=== PATIENT | female | born 2005 ===

== ENCOUNTER 2025-09-06 00:58 | Inpatient (IN) ==
[2025-09-06] MEDS: OXYTOCIN 10 UNITS/ML VIAL IM ONE (01:48)
[2025-09-06] MEDS ORDERED: LACTATED RINGER'S 1,000 ML IV PRN (02:10)
[2025-09-06] MEDS ORDERED: OXYTOCIN 30 UNITS/NSS 30 UNITS/500 ML BAG IV PRN ×2 (02:10→02:32)
--- NOTE | 2025-09-06 02:14 | History & Physical Report ---
Date of Service September 06, 2025 Assessment & Plan (1) Supervision of normal intrauterine in primigravida: Plan: Admit to L&D. Labs to be obtained post-delivery due to imminent nature of delivery on arrival. Admission and Anticipated Discharge Date Admission Date: September 06, 2025 History of Present Illness Chief Complaint: labor Primary Care Provider: MELISSA PCP 20yo @ 38 4/7, presented to L&D with spontaneous labor. complicated by limited care. GBS unknown. Allergies Allergy/AdvReac Type Severity Reaction Status Date / Time No Known Allergies Allergy Verified 09/06/25 01:51 Home Medications Medication Instructions Recorded Confirmed Type [id number] 1 mg 1 tab PO DAILY 09/06/25 09/06/25 History tablet Patient History Surgical History (Updated 09/06/25 @ 01:52 by Delma Bowles, IVON) No history of previous surgery Family History Mother Diabetes Father Myocardial infarction Social History (Updated 07/10/25 @ 14:11 by Jessica Reyes) Smoking Status: Never smoker Do You Dip or Chew Tobacco: No; marital status: Single marital status details: Marvin (22) [phone] Current Living Situation: Significant Other Current Living Situation Comment: lives with fob, no pets. current occupational status: employed current occupation: [id number]. Review of Systems All systems reviewed & are unremarkable except as noted in HPI & below Physical Exam Physical Exam: Upon my arrival to evaluate patient in room, station was 2+ and she was actively feeling urge to push. Constitutional: WD/WN, vitals as above Respiratory: normal respiratory effort, lungs clear to auscultation no respiratory distress Cardiovascular: Rate/Rhythm: regular rate and regular rhythm Gastrointestinal (Abdomen): Inspection/Auscultation: abdomen normal to inspection Percussion/Palpation: abdomen soft; abdomen nontender Gravid. No s/s chorio or abruption. Skin: no rashes, warm and dry Psychiatric: A+Ox3, euthymic affect Results & Data Vital Signs (Past 12 Hours) Vital Signs Temp Pulse Resp BP 09/06/25 02:05 105 H 09/06/25 02:05 135/79 11/16/25 01:27 36.5 C 88 18 138/91 Coding Level of Care Code None Diagnoses Supervision of normal intrauterine in primigravida Z34.00
--- NOTE | 2025-09-06 02:20 | Delivery Summary ---
Vaginal Delivery Summary Date of Service September 06, 2025 Vaginal Delivery Summary and 2nd Degree LAC Vaginal Delivery Summary: Pre-delivery diagnoses: 20yo @ 38 4/7, spontaneous labor and precipitous delivery, limited care Post-delivery diagnoses: same Procedure: spontaneous vaginal delivery Surgeon: Tiff Guadalupe DO Complications: none Findings: Viable male . Apgars: 8/9 . Weight pending, please see nursery records Estimated QBL 116. Description of delivery: The patient was completely dilated upon arrival, did not have time to receive an epidural. She pushed once and spontaneously vaginally delivered a viable from the cephalic presentation. The head delivered in MARCK position. The anterior shoulder delivered, followed by the posterior shoulder, followed by the body. No nuchal. The baby was placed on mother's abdomen and a spontaneous cry was heard. Delayed cord clamping was employed, and the cord was doubly clamped and cut. Cord blood was obtained. The placenta was delivered spontaneously intact with a 3-vessel cord. The uterus and vagina were swept of clots and debris. IV pitocin was given. The uterus became firm. The cervix, vagina, and perineum were inspected - 2nd degree perineal laceration noted. 1% lidocaine injected into perineum for local anesthetic, and repaired with 3-0 Vicryl in standard fashion. Excellent hemostasis was observed. The mother and baby are recovering in stable and good condition in the room. Sponge, sharp, and instrument counts were correct x 2. Tiff Guadalupe DO [facility] Vaginal Delivery Charge Vaginal Delivery Codes: 36230 global code for the antepartum, delivery, and post- Delivery Type Details: and 2nd Degree LAC
[2025-09-06] MEDS: LIDOCAINE 1% LOCAL 20 ML VIAL INFIL PRN (02:25)
[2025-09-06] MEDS ORDERED: IBUPROFEN 600 MG TAB PO PRN (02:32)
[2025-09-06] MEDS ORDERED: HYDROCORTISONE ACETATE 25 MG SUPP PR PRN (02:32)
[2025-09-06] MEDS: LIDOCAINE 1% LOCAL 20 ML VIAL ONE (02:32)
[2025-09-06] MEDS ORDERED: ACETAMINOPHEN 325 MG TAB PO PRN (02:32)
[2025-09-06 03:00] LABS: Hematocrit (blood only) 37.7 % (37.0-47.0); Hemoglobin 12.7 g/dL (12.0-16.0); Mean Corpuscular Hemoglobin 28.7 pg (25.0-34.0); Mean Corpuscular Volume 85.1 fL (80.0-100.0); Platelet Count 188 K/uL (130-400); RDW Standard Deviation 44.4 fL (36.4-46.3); Red Blood Count 4.43 M/uL (4.20-5.40); White Blood Count 15.67 K/ul (4.8-10.8)
[2025-09-06] MEDS: DIPHTHER/TETAN/PERTUS Vaccine (Tdap, Adol/Adult) 0.5mL IM ONE (03:12)
[2025-09-06] MEDS: BENZOCAINE 20% SPRY 85 APPLN/85 GM CAN EXT PRN (03:53)
[2025-09-06] MEDS: DOCUSATE SODIUM 100 MG CAP PO SCH (08:33)
[2025-09-06] MEDS: PRENATAL VITAMIN 1 TAB PO SCH (08:33)
[2025-09-06 09:06] LABS: Amphetamines+Metham, Urine Neg (Neg); MDMA (Ecstacy), Urine Neg (Neg); Marijuana, Urine Neg (Neg)
[2025-09-06 22:55] VITALS: O2SAT 100
[2025-09-07] MEDS ORDERED: OXYTOCIN 10 UNITS/ML VIAL ONE (06:01)
--- NOTE | 2025-09-07 06:28 | Obstetrical Progress Note ---
Date of Service September 07, 2025 Assessment & Plan (1) care following vaginal delivery: Plan 20 yo post- day 1 s/p Feels well today. Vital signs stable Continue post- care Encourage ambulation and Pain controlled with ibuprofen Hgb stable Discharge home today, follow up with Dr. Guadalupe in 6 weeks. Admission and Anticipated Discharge Date Admission Date: September 06, 2025 Supervising Physician Co-Signing Physician Notes Resident Physician Supervision Note: I was present with Dr. Wong during the history and exam. I discussed the case with the resident and agree with the findings and plan as documented in the note. Any exceptions or clarifications are listed here: PPD#1 doing well. Desires dc home - will want to make sure she has seen social work before dc. Documented By: Tiff Guadalupe, DO Subjective 20 yo post- day 1 s/p Ambulation: ambulating normally Voiding: no voiding problems Passing Gas:: Yes Passing Stool:: Yes Diet Tolerance:: regular diet Lochia:: Moderate Feeding Type:: bottle feeding Current Pain Level: 3/10 Resting comfortably this AM in NAD. Denies ZELAYA, CP, SOB, N/V/D, LE pain/swelling. Review of Systems Review of Systems: All systems reviewed & are unremarkable except as noted in HPI & below Physical Exam Physical Exam: General: patient resting comfortably, NAD, non-toxic in appearance, AA&O x 4, answers questions appropriately. Skin: warm, dry, intact HEENT: NC/AT, anicteric sclera, conjunctiva without injection, moist mucus membranes. Heart: +S1/S2, regular, no m/r/g Lungs: equal air entry bilaterally, no rales/rhonchi/wheezes Abd: +BS, soft, NT/ND, uterine fundus firm 1 FB below umbilicus Ext: warm, no clubbing/cyanosis or edema, Yolanda's neg. Neuro: nonfocal, patient AA&O x 4, speech intact, no facial droop, moving all extremities on command. Results & Data Vital Signs (Past 12 Hours) Vital Signs Temp Pulse Resp BP Pulse Ox O2 Del Method 09/06/25 22:54 37 C 83 18 123/79 100 Room Air 09/06/25 19:15 36.7 C 86 18 128/73 98 Room Air Laboratory Results OB Labs: Blood Type A Positive 07/14/25 Antibody Screen NEGATIVE 07/14/25 Hgb 11.7 g/dl (12.0-16.0) L 07/14/25 Hct 36.3 % (37.0-47.0) L 07/14/25 MCV 86.6 fL (80.0-100.0) 07/14/25 Plt Count 222 K/uL (130-400) 07/14/25 Rubella IgG Antibody Immune (Immune) 07/14/25 Treponema pallidum Ab Negative (Negative) 07/14/25 Hep Bs Antigen Negative (Negative) 07/14/25 Hepatitis C Antibody Negative (Negative) 07/14/25 HIV 1&2 Ab/P24 Ag 4thGn Negative (Negative) 07/14/25 Glucose 1 Hr 50 gm Pending 08/11/25 OB Optional Labs: Chlamydia trachomatis RNA Not Detected (NotDetected) 07/14/25 Neisseria gonorrhoeae RNA Not Detected (NotDetected) 07/14/25 Resident Activity Tracking Resident Involvement: Resident Care Provided Care Provided: OB Delivery
[2025-09-07 06:35] LABS: Hematocrit (blood only) 32.4 % (37.0-47.0); Hemoglobin 10.9 g/dL (12.0-16.0)
--- NOTE | 2025-09-08 07:32 | Obstetrical Progress Note ---
Date of Service September 08, 2025 Assessment & Plan (1) care following vaginal delivery: Plan stable, dc home, instructions reviewed. f/u 6 wk pp check. Day #:: 2 Subjective Ambulation: ambulating normally Voiding: no voiding problems Diet Tolerance:: regular diet Lochia:: Small Feeding Type:: bottle feeding no pain issues. Constitutional: + as per Subjective / HPI Physical Exam Constitutional WD/WN, vitals as above Respiratory normal respiratory effort, lungs clear to auscultation Cardiovascular Rate/Rhythm: regular rate and regular rhythm Gastrointestinal (Abdomen) Inspection/Auscultation: abdomen normal to inspection Percussion/Palpation: abdomen soft Fundus firm 2cm down Musculoskeletal nt calves no edema Neurologic grossly normal Psychiatric A+Ox3, euthymic affect Results & Data Vital Signs (Past 12 Hours) Vital Signs Temp Pulse Resp BP Pulse Ox O2 Del Method 09/07/25 23:17 98.4 F 101 H 19 125/84 100 Room Air 09/07/25 19:44 98.4 F 87 19 104/70 100 Room Air
[2025-09-08 09:37] VITALS: BP 129/84; PULSE 91; RESP 20; TEMP 97.5
== END 2025-09-08 10:35 | disposition home or self-care (01) | DRG 807 ==
LOC: OPB 00:58 → 4S1 01:02 → 4E2 04:17